=== PATIENT | female | born 1985 | race Asian ===

== ENCOUNTER 2018-12-10 12:48 | Emergency (ER) | payer OTHER ==
[~2018-12-10] VITALS: Ht 165.1 cm; Wt 73.9 kg
[2018-12-10] MEDS ORDERED: HYDR200T3 PO (13:29)
[2018-12-10] MEDS ORDERED: TROKENDI XR100 MG PO (13:30)
[2018-12-10 14:38] LABS: PLATELET COUNT 223 K/uL (152-353)
[2018-12-10 14:50] LABS: POTASSIUM 3.4 mmol/L (3.6-5.2); SODIUM 140 mmol/L (136-145)
[2018-12-10 15:26] VITALS: BP 120/69; TEMP 97.6
== END 2018-12-10 15:33 | disposition home or self-care (01) ==
LOC: ED 12:48
DX: M35.00 Sjogren syndrome, unspecified (principal)
CPT/HCPCS: 36415; 80053; 81000; 82550; 82553; 84484; 85027; 87502; 87651; 93005; 99283

== ENCOUNTER 2019-11-30 13:00 | Emergency (ER) | payer OTHER ==
[~2019-11-30] VITALS: Ht 165.1 cm; Wt 63.5 kg
[~2019-11-30 13:00] MED LIST: HYDR200T3 PO; TROKENDI XR100 MG PO
[2019-11-30 15:40] VITALS: BP 114/67; TEMP 98.5
== END 2019-11-30 15:40 | disposition home or self-care (01) ==
LOC: ED 13:00
DX: J06.9 Acute upper respiratory infection, unspecified (principal)
CPT/HCPCS: 87502; 87651; 99283